=== PATIENT | male | born 1965 | race African-American/Black ===

== ENCOUNTER 2020-05-17 15:00 | Outpatient (RCR) | payer BC, SELFPAY ==
[2020-05-17 15:03] VITALS: BMI 37.2
[2020-05-17 15:10] VITALS: BMI 37.2
== END 2020-07-23 11:07 | disposition home or self-care (01) ==
LOC: ANHDMC 15:00
PROVIDERS: Visit Provider Internal Medicine Endocrinology, Diabetes & Metabolism
DX: E10.9 Type 1 diabetes mellitus without complications (principal); Z71.3 Dietary counseling and surveillance; Z71.89 Other specified counseling
CPT/HCPCS: 97802; G0108